=== PATIENT | female | born 1985 | race Caucasian/White ===

== ENCOUNTER 2017-11-30 12:24 | Emergency (ER) | payer SELFPAY ==
[~2017-11-30] VITALS: Ht 167.6 cm; Wt 91.9 kg
--- NOTE | 2017-11-30 12:28 | PHYS DOC ---
General Chief Complaint: dental pain Stated Complaint: DENTAL PAIN Time Seen by MD: 12:27 Source: patient Exam Limitations: no limitations Problems: History of Present Illness Initial Comments Patient is a 31-year-old female visiting locally from [place] claiming right side posterior molar tooth pain. Patient states she's had trouble with her right upper and lower posterior molars for some time, states that she bit down on something last night and has been having severe upper and lower right sided posterior molar dental pain. She' s tried [id number] medications without relief this morning noticed some right-sided facial swelling. The teeth involved are numbers 1 and 32. She denies any swelling inside the mouth trouble swallowing or trouble breathing. No bony pain no fever chills sweats or body aches and no discharge. States she doesn't have a dentist locally and plans to leave to go back home to [place] tomorrow. Her vital signs are stable and she is very dramatic regarding her symptoms. When people are in the room she is rolling around and moaning however when staff leaves she is noted to relax. Timing/Duration: abrupt, yesterday Severity: severe Location: throat Prearrival Treatment: over the counter meds Modifying Factors: improves with other Associated Symptoms: facial pain/swelling, poor solids intake, tooth pain Allergies: Coded Allergies: No Known Drug Allergies (Unverified , 11/30/17) Past Medical History Medical History: other (anxiety, depression, fibromyalgia, hypothyroidism, lupus, MRSA) Surgical History: appendectomy, other (tubal ligation, LEEP) LMP (Females 10-50): last week Social History Smoker: non-smoker Alcohol: occasionally Drugs: marijuana Constitutional: denies chills, denies diaphoresis (current), denies fever, denies malaise Ears: denies dizziness, denies pain, denies tinnitus Nose: denies clots, denies congestion, denies epistaxis Mouth: see HPI, denies bloody discharge, denies clear discharge, denies purulent discharge, denies serosanguinous discharge Throat: denies pain, denies swelling, denies discharge, denies neck stiffness, denies painful swallowing, denies difficulty with fluids Respiratory: denies cough, denies shortness of breath Cardiovascular: denies chest pain, denies palpitations Gastrointestinal: denies abdominal pain, denies nausea, denies vomiting Neurological: denies numbness, denies paresthesia, denies weakness Physical Exam General Appearance: moderate distress Eyes: bilateral eye normal inspection, bilateral eye PERRL, bilateral eye EOMI Nose: normal inspection Mouth/Throat: other (severe caries at teeth numbers 32 and 1, mild gingival swelling there is associated some slight facial swelling no airway compromise. 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 That she must follow-up with a dentist for resolution of her symptoms. A list of local dentists as well as information regarding [facility] and [facility] offered. Patient states that she had taken Benadryl prior to coming. She did appear to be altered on some type of substance but was not a danger to herself and she was discharged to a group of friends. I discussed signs and symptoms to monitor for as well as indications for urgent return to the department. Discussed discontinuing substance abuse and oral hydration. I discussed the departure instructions in detail and provided them redness below. Patient expressed agreement and understanding with the treatment plan. Departure Time of Disposition: 12:47 Disposition: 01 HOME, SELF-CARE Diagnosis: dental caries with facial cellulitis Condition: GOOD Patient Instructions: Dental Caries-Brief Additional Instructions: Please review the patient education materials given by ED staff. Aggressive hydration with Gatorade or water. [id number] ibuprofen for baseline discomfort. Prescription: Prednisone, clindamycin, [place] 5 mg quantity 14 Take medications with food to avoid GI upset. As discussed you must follow-up with a dentist for resolution of this condition. Call today to schedule next available appointment. Return to ED with new or changing symptoms. RUTHY OCONNELL DO Nov 30, 2017 12:28
[2017-11-30] MEDS ORDERED: PRED20TA PO ×2 (12:44→13:00)
[2017-11-30] MEDS ORDERED: HYDR-971 PO (12:44)
[2017-11-30] MEDS ORDERED: CLIN300C8 PO (12:44)
[2017-11-30] MEDS ORDERED: HYDROcodone/APAP 5/325MG 1 TAB TABLET PO ONE (13:00)
[2017-11-30] MEDS ORDERED: CLINDAMYCIN HCL 150 MG CAPSULE PO ONE (13:00)
[2017-11-30] MEDS ORDERED: predniSONE 10 MG TABLET PO ONE (13:00)
[2017-11-30 13:12] VITALS: BP 122/75
== END 2017-11-30 13:12 | disposition home or self-care (01) ==
LOC: ER 12:24
DX: K02.9 Dental caries, unspecified (principal); L03.211 Cellulitis of face; E03.9 Hypothyroidism, unspecified; M79.7 Fibromyalgia; F12.10 Cannabis abuse, uncomplicated; Z86.14 Personal history of Methicillin resistant Staphylococcus aureus infection
CPT/HCPCS: 99284; J7512